=== PATIENT | male | born 1995 | race Caucasian/White ===

== ENCOUNTER 2016-04-30 15:39 | Emergency (ER) | payer SELFPAY ==
[~2016-04-30] VITALS: Ht 172.7 cm; Wt 81.0 kg
[2016-04-30 15:43] VITALS: BP 115/66; PULSE 67; RESP 16; TEMP 98.2; O2SAT 98
--- NOTE | 2016-04-30 16:24 | PD ---
HPI Chief Complaint: Back/ Neck Pain or Injury Time Seen by Provider: 16:24 Travel History International Travel<30 days: No Contact w/Intl Traveler<30days: No Traveled to known affect area: No History of Present Illness HPI 20 year old male presents to the ED for evaluation of approximately 8 hour history of left-sided, cramping lower back pain. Rated 8 maximally, 4 on presentation. Patient denies acute trauma. He states that he played basketball all day yesterday. This is unusual activity for him. He denies radiation of the pain, saddle anesthesia, incontinence, numbness, tingling, weakness, limitations to range of motion of the lower extremities. He denies fevers, chills, nausea, vomiting, dysuria, hematuria, penile discharge. No treatment at home. He denies chronic health problems, takes no daily medications. NKDA. PFSH Past Medical History ADHD: Yes Anxiety: Yes Depression: Yes Cardiovascular Problems: No Diminished Hearing: No Gastrointestinal Disorders: No Genitourinary: No Musculoskeletal: No Neurologic: No Psychiatric: Yes Immunizations Current: Yes Past Surgical History Eye Surgery: Yes (1999) Social History Alcohol Use: Yes (OCC) Tobacco Use: Yes (1 PPD) Substance Use: Yes (MARIJUANA, SNORTING XANAX: STATES HE QUIT "SHORTLY AFTER" FEB 10, 2014) Allergies-Medications (Allergen,Severity, Reaction): Coded Allergies: No Known Allergies (Verified , 04/30/16) Reported Meds & Prescriptions Reported Meds & Active Scripts Active Ibuprofen 600 Mg Tab 600 Mg PO Q8HR Flexeril (Cyclobenzaprine HCl) 7.5 Mg Tab 7.5 Mg PO TID Review of Systems Except as stated in HPI: all other systems reviewed are Neg Physical Exam Narrative GENERAL: Well-nourished, well-developed white male, sitting up in the stretcher , in no acute distress. SKIN: Warm and dry. HEAD: Normocephalic. EYES: No scleral icterus. No injection or drainage. NECK: Supple, trachea midline. No JVD or lymphadenopathy. CARDIOVASCULAR: Regular rate and rhythm without murmurs, gallops, or rubs. 2+ DP pulses bilaterally. RESPIRATORY: Breath sounds equal bilaterally. No accessory muscle use. GASTROINTESTINAL: Abdomen soft, non-tender, nondistended. Active bowel sounds. MUSCULOSKELETAL: No cyanosis, or edema. FOCUSED BILATERAL LOWER EXTREMITY EXAM: 5 strength of dorsiflexion, plantar flexion, knee flexion, hip flexion bilaterally. Negative straight leg raise bilaterally. Patient is observed to ambulate with a normal gait. BACK: No obvious deformity. No CVA tenderness. Tender to palpation of the left sided paraspinal musculature in the lumbar area. Data Data Last Documented VS Vital Signs Date Time Temp Pulse Resp B/P Pulse Ox O2 Delivery O2 Flow Rate FiO2 04/30/16 15:43 98.2 67 16 115/66 98 Orders Ketorolac Inj (Toradol Inj) (04/30/16 16:45) Orphenadrine Inj (Norflex Inj) (04/30/16 16:45) [facility] Medical Decision Making Medical Screen Exam Complete: Yes Emergency Medical Condition: Yes Differential Diagnosis Muscle spasm versus musculoskeletal pain versus sciatica versus UTI versus other Narrative Course 20 year old male presents to the ED for evaluation of approximately 8 hour history of left-sided, cramping lower back pain. Rated 8 maximally, 4 on presentation. Patient denies acute trauma. He states that he played basketball all day yesterday. He denies saddle anesthesia, incontinence, numbness, tingling, weakness, limitations to range of motion of the lower extremities. He denies fevers, chills, nausea, vomiting, dysuria, hematuria, penile discharge. No treatment at home. Vitals reviewed. Physical exam reveals nontoxic-appearing white male, sitting up on the stretcher in no acute distress. There is palpable spasm of the left-sided lumbar paraspinal musculature. She retains 5/5 strength in all lower extremity muscle groups. No CVA tenderness. This is muscle spasm. Patient was administered IM Toradol and Norflex. He was prescribed a short course of 800 mg ibuprofen and Flexeril. He is instructed to take the medications as prescribed, return to normal, gentle activities as tolerated, follow-up with the primary care provider. We discussed reasons to return to the ED. He indicated understanding of the discharge instructions, is amenable to this plan of care, is stable and discharged home. Diagnosis Primary Impression: Spasm of paraspinal muscle Referrals: Primary Care Physician Patient Instructions: General Instructions, Muscle Spasm (ED), Muscle Strain ( ED) Additional Instructions: Rest, hydrate. A mixture of rest and activity as best for back pain. Resume normal , gentle activities as tolerated. No strenuous physical activities for the next few days Take ibuprofen as prescribed. Take Flexeril as needed for muscle spasms. Do not drive when taking Flexeril. Applying ice or heat to areas with sore muscles may help to improve your patient. Do not apply ice/ heat for longer than 20 m/h. Gentle massage of the area may also help to improve symptoms. Follow-up with your primary care provider . Return to the ED for any urgent or emergent medical condition. Med/Other Pt SpecificInfo: Prescription(s) given Scripts Ibuprofen 600 Mg [id number] Mg PO Q8HR #15 TAB Ref 0 Prov:Joanie Flores DO 04/30/16 Cyclobenzaprine (Flexeril)7.5 Mg Tab7.5 Mg PO TID #12 TAB Ref 0 Prov:Joanie Flores DO 04/30/16 Disposition: 01 DISCHARGE HOME Condition: Stable Demi Hatch Apr 30, 2016 16:24
[2016-04-30] MEDS ORDERED: KETOROLAC TROMETHAMINE 60 MG/2 ML (IM) VIAL IM ONE (16:45)
[2016-04-30] MEDS ORDERED: CYCL7.5T33 PO (16:45)
[2016-04-30] MEDS ORDERED: IBUP-232 PO (16:45)
[2016-04-30] MEDS ORDERED: ORPHENADRINE INJ 60 MG/2 ML AMP IM ONE (16:45)
== END 2016-04-30 17:23 | disposition home or self-care (01) ==
LOC: PHEFT 15:39
DX: M62.830 Muscle spasm of back (principal); F41.8 Other specified anxiety disorders; F17.210 Nicotine dependence, cigarettes, uncomplicated; F90.9 Attention-deficit hyperactivity disorder, unspecified type
CPT/HCPCS: 96372; 99283; J1885; J2360

== ENCOUNTER 2017-04-22 00:34 | Emergency (ER) | payer OTHER ==
[~2017-04-22] VITALS: Ht 175.3 cm; Wt 85.0 kg
[~2017-04-22 00:34] MED LIST: CYCL7.5T33 PO; IBUP-232 PO
[2017-04-22 00:37] VITALS: BP 125/78; PULSE 18; PULSE 67; RESP 18; TEMP 98.1; O2SAT 98
[2017-04-22 02:30] VITALS: BP 128/76; PULSE 68; RESP 18; O2SAT 98
[2017-04-22 02:41] VITALS: O2SAT 98
--- NOTE | 2017-04-22 03:14 | PD ---
HPI Chief Complaint: Musculoskeletal Complaint Time Seen by Provider: 03:04 Travel History International Travel<30 days: No Contact w/Intl Traveler<30days: No Traveled to known affect area: No History of Present Illness HPI 21yo M with no PMH presents to the ED with c/o right hand pain s/p slamming his right fourth digit with the car door at 8pm today. Denies any other injuries. Denies any fever, chest pain, sob, n/v, abdominal pain, focal weakness or numbness. PFSH Past Medical History ADHD: Yes Anxiety: Yes Depression: Yes Cardiovascular Problems: No Diminished Hearing: No Gastrointestinal Disorders: No Genitourinary: No Musculoskeletal: No Neurologic: No Psychiatric: Yes Immunizations Current: Yes Tetanus Vaccination: > 5 Years Influenza Vaccination: No Past Surgical History Eye Surgery: Yes (1999) Social History Alcohol Use: Yes (OCC) Tobacco Use: Yes (1 PPD) Substance Use: Yes (MARIJUANA, SNORTING XANAX: STATES HE QUIT "SHORTLY AFTER" FEB 10, 2014) Allergies-Medications (Allergen,Severity, Reaction): Coded Allergies: No Known Allergies (Verified Adverse Reaction, Unknown, 04/22/17) Reported Meds & Prescriptions Reported Meds & Active Scripts Active Tylenol (Acetaminophen) 325 Mg Tab 650 Mg PO Q6H PRN Review of Systems Except as stated in HPI: all other systems reviewed are Neg Physical Exam Narrative GENERAL: 21yo M in mild distress. SKIN: Focused skin assessment warm/dry. HEAD: Atraumatic. Normocephalic. CARDIOVASCULAR: Regular rate and rhythm. No murmur appreciated. RESPIRATORY: No accessory muscle use. Clear to auscultation. Breath sounds equal bilaterally. GASTROINTESTINAL: NT/ND. No rebound tenderness or guarding. MUSCULOSKELETAL:Right hand: +Subungal hematoma 90% right fourth nail. FROM in all digits. Nail bed intact. Sensation intact. Radial pulse 2+. NEUROLOGICAL: Awake and alert. No obvious cranial nerve deficits. Motor grossly within normal limits. Normal speech. PSYCHIATRIC: Appropriate mood and affect; insight and judgment normal. Data Data Last Documented VS Vital Signs Date Time Temp Pulse Resp B/P (MAP) Pulse Ox O2 Delivery O2 Flow Rate FiO2 04/22/17 04:28 66 18 118/72 (87) 98 Room Air 04/22/17 00:37 98.1 Orders Orders Hand, Limited (2vws) (04/22/17 ) Oxycodone-Acetamin 5-325 Mg (Percocet (04/22/17 03:15) Lidocaine 1% Inj (Xylocaine 1% Inj) (04/22/17 03:15) Lidocaine Pf 1% Inj (Xylocaine-Mpf 1% In (04/22/17 03:15) Tetanus/Diphtheria Tox Adult (Tetanus/Di (04/22/17 05:15) MDM Medical Decision Making Medical Screen Exam Complete: Yes Emergency Medical Condition: Yes Differential Diagnosis Fracture vs. subungal hematoma Narrative Course 21yo M with right hand pain s/p slam his 4th digit with a car door. Pt has intact nail bed but subungal hematoma under 90% on his nail. Xray right hand showed no acute disease. Pt was given percocet but still with pain. Trephination perform after digital block. Pt tolerated procedure well. Return precautions given. Tetanus given. Procedures Procedure Narrative Trephination of right fourth digit: Digital block was performed using 8cc of 1% lidocaine after cleansing with chlorhexadine. Betadine was used to clean right fourth nail before trephination with 18 gauge needle. Blood was released from under the nail. Pt tolerated procedure well. Diagnosis Primary Impression: Hematoma, subungual, finger Qualified Codes: S60.10XA - Contusion of unspecified finger with damage to nail, initial encounter Patient Instructions: General Instructions Departure Forms: Tests/Procedures Additional Instructions: Please follow up with your primary care physician in 2-3 days. Return to the ED if symptoms worsen or signs of infection. Med/Other Pt SpecificInfo: Prescription(s) given Scripts Acetaminophen (Tylenol) 325 Mg Tab 650 MG PO Q6H Y for PAIN SCALE 1 TO 4, #20 TAB 0 Refills Prov: Joanie Flores DO 04/22/17 Disposition: 01 DISCHARGE HOME Condition: Stable Joanie Flores Apr 22, 2017 03:14
[2017-04-22] MEDS ORDERED: LIDOCAINE HCL 1% PF 30 ML VIAL ONE (03:15)
[2017-04-22] MEDS ORDERED: LIDOCAINE HCL 1% 30 ML VIAL INFIL ONE (03:15)
[2017-04-22] MEDS ORDERED: oxyCODONE/ACETAMINOPHEN 5 MG/325 MG TAB PO ONE (03:15)
--- NOTE | 2017-04-22 04:10 | RADRPT ---
EXAM DATE/TIME: 04/22/2017 03:31 [facility] COMPARISON: No previous studies available for comparison. INDICATIONS : Right hand, fourth digit pain after being slammed in a car door. MEDICAL HISTORY : None. SURGICAL HISTORY : None. ENCOUNTER: Initial ACUITY: 1 day PAIN SCORE: 8/10 LOCATION: Right hand, fourth digit. FINDINGS: Two view examination of the right hand demonstrates no soft tissue swelling, dislocation, or fracture . The joint spaces are maintained. Bony mineralization is normal. CONCLUSION: No acute disease. Jefry Art MD on April 22, 2017 at 4:08 Board Certified Radiologist. This report was verified electronically.
[2017-04-22 04:28] VITALS: BP 118/72; PULSE 66; RESP 18; O2SAT 98
[2017-04-22] MEDS ORDERED: TYLE325T PO (05:04)
[2017-04-22] MEDS ORDERED: TETANUS/DIPHTHERIA TOXOID ADULT 0.5 ML VIAL IM ONE (05:15)
[2017-04-22 05:26] VITALS: BP 120/74; PULSE 64; RESP 18; O2SAT 98
== END 2017-04-22 05:38 | disposition home or self-care (01) ==
LOC: PHED 00:34
DX: S60.141A Contusion of right ring finger with damage to nail, initial encounter (principal); Z23 Encounter for immunization; F32.9 Major depressive disorder, single episode, unspecified; F17.210 Nicotine dependence, cigarettes, uncomplicated; W23.0XXA Caught, crushed, jammed, or pinched between moving objects, initial encounter
CPT/HCPCS: 11740; 73120; 90471; 90714